=== PATIENT | female | born 1960 | race American Indian/Alaskan Native ===

== ENCOUNTER 2018-02-12 13:21 | Outpatient (CLI) | payer MEDICARE ==
--- NOTE | 2018-02-12 16:12 | Mammography Report ---
BILATERAL DIGITAL SCREENING MAMMOGRAM with CAD: 02/12/18 13:21:00 CLINICAL: Routine screening. COMPARISON:06/09/16 FINDINGS: The breasts are mostly fatty with a few bilateral residual fibroglandular densities. A right upper outer focal asymmetry requires additional imaging.No architectural distortion or suspicious calcifications.The left breast is negative. IMPRESSION: Right asymmetry requiring further workup. BI-RADS CATEGORY: 0 -- Additional Imaging Evaluation Required RECOMMENDATION: Recall for right mediolateral , spot magnification CC and MLO views and right ultrasound. ACR BI-RADS MAMMOGRAPHIC CODES: 0 = Needs additional imaging evaluation; 1 = Negative; 2 = Benign; 3 = Probably benign; 4 = Suspicious; 5 = Malignant; 6 = Known biopsy-proven malignancy COMMENT: 1. Dense breast tissue, i.e., adenosis, fibrocystic changes, etc., may obscure an underlying neoplasm. 2. Approximately 10% of cancers are not detected with mammography. 3. A negative mammography report should not delay biopsy if a clinically suspicious mass is present. COMMENT: Patient follow-up letters are generated via our Live Mobile application.
== END 2018-02-12 13:22 | disposition home or self-care (01) ==
LOC: SPVWC 13:21
PROVIDERS: ATTEND General Practice
DX: Z12.31 Encounter for screening mammogram for malignant neoplasm of breast (principal); I10 Essential (primary) hypertension; Z88.0 Allergy status to penicillin; Z90.710 Acquired absence of both cervix and uterus
CPT/HCPCS: 77067

== ENCOUNTER 2019-02-14 07:52 | Outpatient (CLI) | payer MEDICARE ==
--- NOTE | 2019-02-14 12:27 | Mammography Report ---
DIGITAL DIAGNOSTIC MAMMOGRAM 02/14/2019 INDICATION: Bilateral clear nipple discharge for one month TECHNIQUE: Digital bilateral mammographic imaging was performed. Magnification views were obtained. COMPARISON: 02/12/2018, 06/09/2016, 06/07/2015 FINDINGS: Breast Density: There are scattered areas of fibroglandular density. There is no evidence of dominant mass, suspicious calcifications or architectural distortion in the l eft breast. In the right breast in an area of concern on the prior study in 2018, a vague area of inc reased density is seen with a suggestion of mild architectural distortion. This is persistent on spot compression impression magnification views. IMPRESSION: 1. In the right breast in an area of concern on last mammogram for which additional evaluation was re commended recommended, there continues to be vague increased density compared to prior studies and mi ld architectural distortion. Ultrasound is recommended to further evaluate this area. This was planne d today but the patient left prior to completion. 2. No source of nipple discharge is seen on the left. 3. Clinical correlation to the history of nipple discharge is suggested. Serous nipple discharge can be associated with malignancy. If this is considered a valid history, MR may be useful after completi on of the right breast ultrasound. BI-RADS 0, needs additional imaging evaluation A "normal" or negative report should not discourage follow up or biopsy of a clinically significant f inding. A written summary of these findings will be mailed to the patient. The patient will be entered into a mammography reporting system which will generate a reminder letter for the patient's next appointmen t at the appropriate interval. According to the [employer], yearly mammograms are recommended starting at age 40 and continuing as long as a woman is in good health. Breast MRI is recommended for women with an kev roximately 20-25% or greater lifetime risk of breast cancer, including women with a strong family his tory of breast or ovarian cancer and women who have been treated for Hodgkin's disease. Signer Name: Jona Wilcox MD Signed: 02/14/2019 12:22 PM Workstation Name: [id number]
== END 2019-02-14 07:53 | disposition home or self-care (01) ==
LOC: SPVWC 07:52
PROVIDERS: ATTEND Hospitalist
DX: N63.10 Unspecified lump in the right breast, unspecified quadrant (principal); I10 Essential (primary) hypertension; Z90.710 Acquired absence of both cervix and uterus
CPT/HCPCS: 77066

== ENCOUNTER 2019-02-28 10:30 | Outpatient (CLI) | payer MEDICARE ==
--- NOTE | 2019-02-28 13:41 | Ultrasound Report ---
RIGHT BREAST ULTRASOUND HISTORY: Asymmetry and architectural distortion. COMPARISON: 02/14/2019 FINDINGS: Sonographic evaluation focused upon the area of interest in the outer right breast and axil la. Shadowing hypoechoic irregular mass is identified at 9:30 o'clock 4 cm from the nipple measuring 1.2 x 0.5 x 0.5 cm. It correlates with the mammographic asymmetry and architectural distortion. Ultra sound of the right axilla demonstrated an abnormal lymph node with minimal central fat measuring 1.4 x 0.6 cm. IMPRESSION: A highly suspicious 1.2 cm right breast mass at 9:30 o'clock 4 cm from the nipple and a suspicious ri ght axillary lymph node. Recommend ultrasound guided needle biopsy of the breast mass and ultrasound- guided needle biopsy of the right axillary lymph node. I spoke to the patient and discussed the findings and recommendation for needle biopsies. BIRADS 5: Highly suggestive of malignancy Signer Name: Gera King MD Signed: 02/28/2019 1:36 PM Workstation Name: [id number]
== END 2019-02-28 10:31 | disposition home or self-care (01) ==
LOC: SPVWC 10:30
PROVIDERS: ATTEND Hospitalist
DX: N63.11 Unspecified lump in the right breast, upper outer quadrant (principal); I10 Essential (primary) hypertension; Z90.710 Acquired absence of both cervix and uterus

== ENCOUNTER 2019-11-05 16:45 | Emergency (ER) | payer MEDICARE ==
--- NOTE | 2019-11-05 17:02 | Emergency Department Report ---
ED Altered Mental Status HPI - General Stated Complaint: AMS Time Seen by Provider: 11/05/19 16:59 Source: patient, family, EMS Mode of arrival: Stretcher Limitations: No Limitations - History of Present Illness Initial Comments: Mrs. Cummings is a 58 yo female with hx of breast cancer on chemotherapy who presents with altered mental status. Son over video phone call informed me that her speech is different. She seems confused. She admits to drinking wine today. She denies pain. She has coimpleted chemotherapy one month ago. She arrived via EMS. Son states she has hx of heart disease. Unknown time last known well. Neighbor was able to state that she arrived home 1 PM after visiting family. Patient does have history of atrial fibrillation according to her report. She takes Eliquis. She did not take Eliquis last night because it was too late. Family Mino gave further information. Patient was confused over the phone 11 AM. Patient was unable to remember how to get to her Aunt Nediogenes's home. The aunt met patient at the grocery store. She was confused and speech was "off". Aunt recommended that patient goes directly home to rest. MD Complaint: altered mental status, confusion -: Gradual, unknown Severity: mild Consistency of Symptoms: constant Context: other (heart disease, breast CA) Associated Symptoms: denies other symptoms - Related Data Home Medications Medication Instructions Recorded Confirmed Last Taken ALBUTEROL NEB's [Proventil 0.083% 1 neb IH Q6H PRN 09/02/14 09/02/14 09/01/14 21:00 NEBS] lisinopriL [Zestril TAB] 40 mg PO QDAY 09/02/14 09/02/14 09/02/14 09:00 Previous Rx's Medication Instructions Recorded Last Taken Type Albuterol Sulfate [Ventolin HFA] 2 puff IH Q4H PRN #1 hfa.aer.ad 09/02/14 Unknown Rx Ibuprofen [Motrin] 600 mg PO Q8H PRN #40 tablet 09/02/14 Unknown Rx Promethazine /Codeine 5 ml PO Q6H PRN #150 ml 09/02/14 Unknown Rx [Phenergan/Codeine 6.25-10 mg/5 ml] Sulfamethoxazole/Trimethoprim 1 each PO BID #20 tablet 09/02/14 Unknown Rx [Bactrim Ds] predniSONE [Deltasone] 50 mg PO QDAY #5 tab 09/02/14 Unknown Rx Allergies Allergy/AdvReac Type Severity Reaction Status Date / Time Penicillins Allergy Swelling Verified 09/02/14 13:40 ED Review of Systems ROS: Stated complaint: AMS Other details as noted in HPI Comment: All other systems reviewed and negative Constitutional: denies: fever, malaise Respiratory: denies: cough, shortness of breath Gastrointestinal: denies: abdominal pain, nausea, vomiting Neurological: confusion. denies: headache, weakness, numbness, paresthesias ED Past Medical Hx - Past Medical History Previous Medical History?: Yes Hx Hypertension: Yes Additional medical history: CHRONIC NECK AND BACK PAIN. Breast CA - Surgical History Additional Surgical History: PARTIAL HYSTERECTOMY. TONSILLECTOMY - Social History Smoking Status: Never Smoker Substance Use Type: Alcohol, Marijuana - Medications Home Medications: Home Medications Medication Instructions Recorded Confirmed Last Taken Type ALBUTEROL NEB's [Proventil 0.083% 1 neb IH Q6H PRN 09/02/14 09/02/14 09/01/14 21:00 History NEBS] Albuterol Sulfate [Ventolin HFA] 2 puff IH Q4H PRN #1 hfa.aer.ad 09/02/14 Unknown Rx Ibuprofen [Motrin] 600 mg PO Q8H PRN #40 tablet 09/02/14 Unknown Rx Promethazine /Codeine 5 ml PO Q6H PRN #150 ml 09/02/14 Unknown Rx [Phenergan/Codeine 6.25-10 mg/5 ml] Sulfamethoxazole/Trimethoprim 1 each PO BID #20 tablet 09/02/14 Unknown Rx [Bactrim Ds] lisinopriL [Zestril TAB] 40 mg PO QDAY 09/02/14 09/02/14 09/02/14 09:00 History predniSONE [Deltasone] 50 mg PO QDAY #5 tab 09/02/14 Unknown Rx ED Physical Exam - General Limitations: Other (Mild dysarthria mild aphasia) General appearance: alert, in no apparent distress, other (slurred speech) - Head Head exam: Present: atraumatic, normocephalic - Eye Eye exam: Present: normal appearance - ENT ENT exam: Present: mucous membranes moist - Neck Neck exam: Present: normal inspection, full ROM - Respiratory Respiratory exam: Present: normal lung sounds bilaterally. Absent: respiratory distress, wheezes, rales, rhonchi - Cardiovascular Cardiovascular Exam: Present: regular rate, normal rhythm, normal heart sounds. Absent: systolic murmur, diastolic murmur, rubs, gallop - GI/Abdominal GI/Abdominal exam: Present: soft, normal bowel sounds. Absent: distended, tenderness, guarding, rebound - Extremities Exam Extremities exam: Present: normal inspection - Neurological Exam Neurological exam: Present: alert, oriented X3 - Expanded Neurological Exam Expanded Patient oriented to: Present: person, place, time Speech: Present: expressive aphasia Cerebellar function: Finger to Nose: Normal Upper motor neuron: Alejandro Neglect: Normal Sensory exam: Upper Extremity Light Touch: Normal Motor strength exam: RUE: 5, LUE: 5, RLE: 5, LLE: 5 Best Eye Response (Angela): (4) open spontaneously Best Motor Response (Angela): (6) obeys commands Best Verbal Response (Angela): (5) oriented Angela Total: 15 - Psychiatric Psychiatric exam: Present: normal affect, normal mood - Skin Skin exam: Present: warm, dry, intact, normal color. Absent: rash - Assessment Assessment Interval: Baseline - Level of Consciousness 1a. Level of Consciousness: alert/keenly responsive - LOC Questions 1b. LOC Questions: answers both correctly - LOC Command 1c. LOC Commands: performs tasks correctly - Best Gaze 2. Best Gaze: normal - Visual 3. Visual: no visual loss - Facial Palsy 4. Facial Palsy: normal symmetrical movement - Motor Arm 5a. Motor Arm Left: no drift 5b. Motor Arm Right: no drift - Motor Leg 6a. Motor Leg Left: no drift 6b. Motor Leg Right: no drift - Limb Ataxia 7. Limb Ataxia: absent - Sensory 8. Sensory: normal - Best Language 9. Best Language: mild/moderate aphasia - Dysarthria 10. Dysarthria: mild/moderate dysarthria - Extinction and Inattention 11. Extinction/Inattention: no abnormality - Scoring Total Score: 2 Stroke Severity: Minor Stroke ED Course Vital Signs 11/05/19 11/05/19 11/05/19 17:00 17:04 17:11 Temperature 98.3 F Pulse Rate 130 H Respiratory 9 L 22 14 Rate Blood Pressure 153/86 Blood Pressure 153/86 [Left] O2 Sat by Pulse 98 98 98 Oximetry 11/05/19 11/05/19 11/05/19 18:54 19:14 19:40 Temperature Pulse Rate 86 91 H 89 Respiratory 20 13 Rate Blood Pressure 133/73 138/61 Blood Pressure 133/73 [Left] O2 Sat by Pulse 98 Oximetry 11/05/19 20:00 Temperature Pulse Rate 91 H Respiratory 23 Rate Blood Pressure 138/61 Blood Pressure [Left] O2 Sat by Pulse 97 Oximetry - Reevaluation(s) Reevaluation #1: 11/05/19 20:20 I spoke with tele-neurologist who contacted [place] interventionalist Dr. Hammer, Patient has LVO. I immediately spoke with Dr. Hammer through the [place] transfer center. I discussed case extensively with Dr. Ceja. At this time awaiting transfer of images to [facility] PACS - Lab Data Result diagrams: 11/05/19 17:06 11/05/19 17:06 Lab Results 11/05/19 11/05/19 11/05/19 Range/Units 17:06 17:06 17:06 WBC 6.1 (4.5-11.0) K/mm3 RBC 4.77 (3.65-5.03) M/mm3 Hgb 15.0 H (10.1-14.3) gm/dl Hct 42.3 (30.3-42.9) % MCV 89 (79-97) fl MCH 31 (28-32) pg MCHC 36 H (30-34) % RDW 14.1 (13.2-15.2) % Plt Count 186 (140-440) K/mm3 Lymph % (Auto) 26.4 (13.4-35.0) % Arthur % (Auto) 10.7 H (0.0-7.3) % Eos % (Auto) 2.7 (0.0-4.3) % Baso % (Auto) 0.6 (0.0-1.8) % Lymph # 1.6 (1.2-5.4) K/mm3 Arthur # 0.7 (0.0-0.8) K/mm3 Eos # 0.2 (0.0-0.4) K/mm3 Baso # 0.0 (0.0-0.1) K/mm3 Seg Neutrophils % 59.6 (40.0-70.0) % Seg Neutrophils # 3.6 (1.8-7.7) K/mm3 PT 14.2 (12.2-14.9) Sec. INR 1.09 (0.87-1.13) APTT 26.9 (24.2-36.6) Sec. Sodium 140 (137-145) mmol/L Potassium 4.2 (3.6-5.0) mmol/L Chloride 101.5 (98-107) mmol/L Carbon Dioxide 30 (22-30) mmol/L Anion Gap 13 mmol/L BUN 16 (7-17) mg/dL Creatinine 1.0 (0.7-1.2) mg/dL Estimated GFR > 60 ml/min BUN/Creatinine Ratio 16 % Glucose 88 (65-100) mg/dL POC Glucose (70-105) Calcium 9.5 (8.4-10.2) mg/dL Total Bilirubin 0.40 (0.1-1.2) mg/dL AST 21 (5-40) units/L ALT 30 (7-56) units/L Alkaline Phosphatase 54 (35-129) units/L Troponin T < 0.010 (0.00-0.029) ng/mL Total Protein 7.1 (6.3-8.2) g/dL Albumin 3.8 L (3.9-5) g/dL Albumin/Globulin Ratio 1.2 % Plasma/Serum Alcohol (0-0.07) % 11/05/19 11/05/19 Range/Units 17:06 17:47 WBC (4.5-11.0) K/mm3 RBC (3.65-5.03) M/mm3 Hgb (10.1-14.3) gm/dl Hct (30.3-42.9) % MCV (79-97) fl MCH (28-32) pg MCHC (30-34) % RDW (13.2-15.2) % Plt Count (140-440) K/mm3 Lymph % (Auto) (13.4-35.0) % Arthur % (Auto) (0.0-7.3) % Eos % (Auto) (0.0-4.3) % Baso % (Auto) (0.0-1.8) % Lymph # (1.2-5.4) K/mm3 Arthur # (0.0-0.8) K/mm3 Eos # (0.0-0.4) K/mm3 Baso # (0.0-0.1) K/mm3 Seg Neutrophils % (40.0-70.0) % Seg Neutrophils # (1.8-7.7) K/mm3 PT (12.2-14.9) Sec. INR (0.87-1.13) APTT (24.2-36.6) Sec. Sodium (137-145) mmol/L Potassium (3.6-5.0) mmol/L Chloride (98-107) mmol/L Carbon Dioxide (22-30) mmol/L Anion Gap mmol/L BUN (7-17) mg/dL Creatinine (0.7-1.2) mg/dL Estimated GFR ml/min BUN/Creatinine Ratio % Glucose (65-100) mg/dL POC Glucose 76 (70-105) Calcium (8.4-10.2) mg/dL Total Bilirubin (0.1-1.2) mg/dL AST (5-40) units/L ALT (7-56) units/L Alkaline Phosphatase (35-129) units/L Troponin T (0.00-0.029) ng/mL Total Protein (6.3-8.2) g/dL Albumin (3.9-5) g/dL Albumin/Globulin Ratio % Plasma/Serum Alcohol < 0.01 (0-0.07) % 11/05/19 17:29 EKG obtained 1722 Atrial fibrillation atrial flutter ventricular rate 125 bpm normal axis no ST elevation - Radiology Data Radiology results: report reviewed CT head there is focus of increased attenuation along the L MCA near the trifurcation concerning for thrombus given the patient's history, mild microvascular angiopathy without CT evidence of acute intracranial hemorrhage, opacification of visualized right maxillary sinus CT angiogram of the neck revealed mild atherosclerotic plaque involving the posterior proximal left ICA without significant stenosis CT head angiogram of the head revealed occlusion of the distal M1 segment of the left MCA near trifurcation - Medical Decision Making Acute CVA: tPA not indicated due to time of onset and use of Eliquis, NIHSS 2, Teleneurologist recommended CT angiogram head/neck Distal M1 MCA LVO Dr. Bianchy accepted patient in transfer for possible thrombectomy to [facility]. Critical Care Time: Yes Critical care time in (mins) excluding proc time.: 60 Critical care attestation.: If time is entered above; I have spent that time in minutes in the direct care of this critically ill patient, excluding procedure time. 60 minutes of critical care time excluding procedures were used in the care of the patient. I reviewed electronic record. I discussed treatment plan with the nursing team members at the bedside. I came immediately to the bedside. I kept the family members informed. Patient required multiple interventions and reassessments. ED Disposition Clinical Impression: Acute CVA (cerebrovascular accident), Cerebrovascular accident (CVA) involving large vessel Disposition: DC/TX-70 ANOTHER TYPE HLTHCARE Is pt being admited?: No Does the pt Need Aspirin: No Condition: Stable
[2019-11-05 17:19] LABS: Basophils % (Auto) 0.6 % (0.0-1.8); Eosinophils # (Auto) 0.2 K/mm3 (0.0-0.4); Eosinophils % (Auto) 2.7 % (0.0-4.3); Hematocrit 42.3 % (30.3-42.9); Lymphocytes # (Auto) 1.6 K/mm3 (1.2-5.4); Lymphocytes % (Auto) 26.4 % (13.4-35.0); Mean Corpuscular HGB Conc 36 % (30-34); Mean Corpuscular Volume 89 fl (79-97); Monocytes # (Auto) 0.7 K/mm3 (0.0-0.8); Monocytes % (Auto) 10.7 % (0.0-7.3); Platelet Count 186 K/mm3 (140-440); Red Blood Count 4.77 M/mm3 (3.65-5.03); Red Cell Distribution Width 14.1 % (13.2-15.2)
[2019-11-05 17:30] LABS: INR 1.09 (0.87-1.13)
[2019-11-05 17:31] LABS: Partial Thromboplastin Time 26.9 Sec. (24.2-36.6)
--- NOTE | 2019-11-05 17:42 | XRay Report ---
CHEST 1 VIEW INDICATION / CLINICAL INFORMATION: dysarthria. Chest pain. COMPARISON: None available. FINDINGS: SUPPORT DEVICES: None. HEART / MEDIASTINUM: No significant abnormality. LUNGS / PLEURA: No significant pulmonary or pleural abnormality. No pneumothorax. ADDITIONAL FINDINGS: No significant additional findings. IMPRESSION: 1. No acute findings. Signer Name: Mohsen Vidal MD Signed: 11/05/2019 5:38 PM Workstation Name: [id number]
[2019-11-05 17:52] LABS: Alanine Aminotransferase 30 units/L (7-56); Albumin 3.8 g/dL (3.9-5); BUN/Creatinine Ratio 16; Blood Urea Nitrogen 16 mg/dL (7-17); Calcium 9.5 mg/dL (8.4-10.2); Hemolysis Index 14
--- NOTE | 2019-11-05 17:57 | History and Physical Report ---
History of Present Illness Chief complaint: She started acting confused today and her speech was off History of present illness: 58 YO Female with Atrial Fib, Noncompliant with Therapeutic Anticoagulation, Obesity, HTN, BRCa S/P Chemotherapy presents to ED for evaluation. Patient is confused and is unable to provide detailed history at the time of my evaluation. Patient history taken from ED staff, EMS staff and patient son who is spoken to via video phone call. Patient son reports that patient was in her usual state of health upon awakening from sleep this morning around 0800 hrs. Patient was found to have confusion while talking to her son over the telephone at approximately 11 AM. EMS was notified and upon arrival the patient was found to be confused and in distress and subsequently transported to [facility] for further care and evaluation. Patient seen and evaluated in the emergency department. A code stroke was called. Tele-neurology was consulted. Patient underwent CT scan of the brain which revealed abnormalities in the left middle cerebral artery territory. Patient was initiated on CVA protocol and admitted to telemetry. Patient was also found to have metabolic acidosis. No reports of fever, chills, chest pain, palpitations, trauma, productive cough, recent ill contacts, known exposure to COVID-19. No prior admission for review. All medication listed at time of admission has been reconciled. Past History Past Medical History: atrial fib, cancer, other (See HPI) Past Surgical History: hysterectomy, tonsillectomy Social history: single. denies: smoking, alcohol abuse, prescription drug abuse Family history: diabetes, hypertension Medications and Allergies Allergies Allergy/AdvReac Type Severity Reaction Status Date / Time Penicillins Allergy Swelling Verified 09/02/14 13:40 Home Medications Medication Instructions Recorded Confirmed Last Taken Type ALBUTEROL NEB's [Proventil 0.083% 1 neb IH Q6H PRN 09/02/14 09/02/14 09/01/14 21:00 History NEBS] Albuterol Sulfate [Ventolin HFA] 2 puff IH Q4H PRN #1 hfa.aer.ad 09/02/14 Unknown Rx Ibuprofen [Motrin] 600 mg PO Q8H PRN #40 tablet 09/02/14 Unknown Rx Promethazine /Codeine 5 ml PO Q6H PRN #150 ml 09/02/14 Unknown Rx [Phenergan/Codeine 6.25-10 mg/5 ml] Sulfamethoxazole/Trimethoprim 1 each PO BID #20 tablet 09/02/14 Unknown Rx [Bactrim Ds] lisinopriL [Zestril TAB] 40 mg PO QDAY 09/02/14 09/02/14 09/02/14 09:00 History predniSONE [Deltasone] 50 mg PO QDAY #5 tab 09/02/14 Unknown Rx Review of Systems ROS unobtainable: due to mental status Exam - Constitutional Vitals: Temp Pulse Resp BP Pulse Ox 98.3 F 130 H 14 153/86 98 11/05/19 17:04 11/05/19 17:04 11/05/19 17:11 11/05/19 17:04 11/05/19 17:11 General appearance: Present: mild distress, obese - EENT Eyes: Present: PERRL ENT: hearing intact, clear oral mucosa - Neck Neck: Present: supple, normal ROM - Respiratory Respiratory effort: normal Respiratory: bilateral: CTA - Cardiovascular Heart Sounds: Present: S1 & S2. Absent: rub, click - Extremities Extremities: pulses symmetrical, No edema Peripheral Pulses: within normal limits - Abdominal General gastrointestinal: Present: soft, non-tender, non-distended, normal bowel sounds Female genitourinary: Present: normal - Integumentary Integumentary: Present: clear, warm, dry - Musculoskeletal Musculoskeletal: generalized weakness - Psychiatric Psychiatric: no appropriate mood/affect, no intact judgment & insight, no memory intact - Neurologic Neurologic: CNII-XII intact, no focal deficits, moves all extremities, no gait normal Results - Labs CBC & Chem 7: 11/05/19 17:06 11/05/19 17:06 Labs: Abnormal lab results 11/05/19 11/05/19 Range/Units 17:06 17:06 Hgb 15.0 H (10.1-14.3) gm/dl MCHC 36 H (30-34) % Harding % (Auto) 10.7 H (0.0-7.3) % Albumin 3.8 L (3.9-5) g/dL Assessment and Plan - Patient Problems (1) CVA (cerebral vascular accident) Current Visit: Yes Status: Acute Qualifiers: Precerebral and cerebral artery: middle cerebral artery Laterality of affected vessel: left Plan to address problem: CVA protocol: CT head, CT angios head and neck, tele-neurology consulted, carotid Doppler, echocardiogram, physical therapy, Occupational Therapy, speech therapy, antiplatelet therapy, lipid panel, statin therapy, neurochecks. Will resume antiplatelet therapy for now and discontinue in a.m. and resume therapeutic anticoagulation with Eliquis and a.m. As per tele-neurology recommendations. (2) Atrial fibrillation Current Visit: Yes Status: Acute Qualifiers: Atrial fibrillation type: other persistent Qualified Code(s): I48.19 - Other persistent atrial fibrillation Plan to address problem: Rate control, continue therapeutic anticoagulation, supportive care. (3) Acidosis Current Visit: Yes Status: Acute Plan to address problem: BMP, repeat BMP in a.m., IV fluid resuscitation therapy as clinically indicated. (4) Breast cancer Current Visit: Yes Status: Acute Plan to address problem: Status post chemotherapy. Outpatient oncology follow-up. (5) DVT prophylaxis Current Visit: Yes Status: Acute Plan to address problem: SCD to bilateral lower extremities while in bed, continue therapeutic anticoagulation.
[2019-11-05] MEDS ORDERED: ACETAMINOPHEN 325 MG TAB PO PRN (18:04)
[2019-11-05] MEDS ORDERED: ONDANSETRON 4 MG/2 ML INJ IV PRN (18:04)
[2019-11-05] MEDS ORDERED: MAGNESIUM HYDROXIDE (MOM) ORAL LIQD UDC PO PRN (18:04)
[2019-11-05] MEDS ORDERED: PROMETHAZINE 25 MG RECT SUPP PR PRN (18:04)
[2019-11-05] MEDS ORDERED: METOCLOPRAMIDE 10 MG TAB PO PRN (18:04)
[2019-11-05] MEDS ORDERED: ALBUTEROL 8.5 GM INHALATION IH PRN (18:06)
[2019-11-05] MEDS ORDERED: ALBUTEROL 2.5 MG/3 ML NEBU IH PRN (18:06)
[2019-11-05] MEDS ORDERED: PROMETHAZINE/CODEINE 6.25-10 MG ORAL LIQD 5 ML PO PRN (18:06)
[2019-11-05] MEDS ORDERED: IBUPROFEN 600 MG TAB PO PRN (18:06)
--- NOTE | 2019-11-05 18:16 | Cat Scan Report ---
CT head/brain wo con INDICATION / CLINICAL INFORMATION: 58 years Female; MAIN: Stroke symptoms DIFF SPEAKING PT UNABLE TO REMOVE ALL OF PIERCINGS. TECHNIQUE: Routine CT head without contrast. All CT scans at this location are performed using CT dos e reduction for ALARA by means of automated exposure control. COMPARISON: None. FINDINGS: BRAIN / INTRACRANIAL CONTENTS: There is a focus of increased attenuation projected along the left MCA near the trifurcation which may reflect atherosclerotic calcification or possibly thrombus.. There i s no clear CT evidence of significant edema within the left MCA distribution on the current CT though correlation would be needed given the patient's history There is otherwise mild cerebral white matter disease most consistent with mild scattered microvascul ar angiopathy. The ventricular system is within normal limits in size and configuration. There is no clear CT evidence of acute intracranial hemorrhage or significant mass effect. ORBITS: No significant abnormality of visualized orbits. SINUSES / MASTOIDS: There is prominent opacification and mucosal thickening within the visualized rig ht maxillary sinus. Minimal thickening is seen along the posterior left sphenoid sinus. CRANIOCERVICAL JUNCTION: No significant abnormality. ADDITIONAL FINDINGS: None. IMPRESSION: 1. There is a focus of increased attenuation along the left MCA near the trifurcation concerning for thrombus given the patient's a history; correlation would be needed. 2. There is mild microvascular angiopathy without CT evidence of acute intracranial hemorrhage. There is notable opacification of the visualized right maxillary sinus. Signer Name: Allan Fraire MD Signed: 11/05/2019 6:11 PM Workstation Name: [id number]
--- NOTE | 2019-11-05 18:23 | Consultation ---
History of Present Illness Consult date: 11/05/19 Medications and Allergies Allergies Allergy/AdvReac Type Severity Reaction Status Date / Time Penicillins Allergy Swelling Verified 09/02/14 13:40 Home Medications Medication Instructions Recorded Confirmed Last Taken Type ALBUTEROL NEB's [Proventil 0.083% 1 neb IH Q6H PRN 09/02/14 09/02/14 09/01/14 21:00 History NEBS] Albuterol Sulfate [Ventolin HFA] 2 puff IH Q4H PRN #1 hfa.aer.ad 09/02/14 Unknown Rx Ibuprofen [Motrin] 600 mg PO Q8H PRN #40 tablet 09/02/14 Unknown Rx Promethazine /Codeine 5 ml PO Q6H PRN #150 ml 09/02/14 Unknown Rx [Phenergan/Codeine 6.25-10 mg/5 ml] Sulfamethoxazole/Trimethoprim 1 each PO BID #20 tablet 09/02/14 Unknown Rx [Bactrim Ds] lisinopriL [Zestril TAB] 40 mg PO QDAY 09/02/14 09/02/14 09/02/14 09:00 History predniSONE [Deltasone] 50 mg PO QDAY #5 tab 09/02/14 Unknown Rx Active Meds: Active Medications Acetaminophen (Tylenol) 650 mg PO Q4H PRN PRN Reason: Pain, Mild (1-3) Albuterol (Proventil) 2.5 mg IH Q6H PRN PRN Reason: Wheezing Albuterol (Proair) 2 puff IH Q4H PRN PRN Reason: Shortness Of Breath Aspirin (Aspirin) 325 mg PO QDAY TERRANCE Atorvastatin Calcium (Lipitor) 40 mg PO QHS TERRANCE Bisacodyl (Dulcolax) 10 mg MA QDAY PRN PRN Reason: Constipation Ibuprofen (Ibuprofen) 600 mg PO Q8H PRN PRN Reason: PAIN Lisinopril (Zestril) 40 mg PO QDAY [facility] Magnesium Hydroxide (Milk Of Magnesia) 30 ml PO Q4H PRN PRN Reason: Constipation Metoclopramide HCl (Reglan) 10 mg PO Q6H PRN PRN Reason: Nausea And Vomiting Ondansetron HCl (Zofran) 4 mg IV Q8H PRN PRN Reason: Nausea And Vomiting Prednisone (Deltasone) 50 mg PO QDAY TERRANCE Promethazine HCl (Phenergan) 25 mg MA Q6H PRN PRN Reason: Nausea And Vomiting Promethazine HCl/Codeine (Phenergan/Codeine 6.25-10 Mg/5ml) 5 ml PO Q6H PRN PRN Reason: cough Sodium Chloride (Sodium Chloride Flush Syringe 10 Ml) 10 ml IV PRN PRN PRN Reason: LINE FLUSH Physical Examination - Vital Signs Vital Signs: Vital Signs Temp Pulse Resp BP Pulse Ox 98.3 F 130 H 22 153/86 98 11/05/19 17:04 11/05/19 17:04 11/05/19 17:04 11/05/19 17:04 11/05/19 17:04 Results - Laboratory Findings CBC and BMP: 11/05/19 17:06 11/05/19 17:06 Abnormal Lab Findings: Abnormal Labs 11/05/19 11/05/19 17:06 17:06 Hgb 15.0 H MCHC 36 H [place] % (Auto) 10.7 H Albumin 3.8 L Assessment and Plan [facility] Date of Service 11/05/2019 Impression: 1- word finding difficulty concerning for Acute Ischemic Stroke 2- Atrial Fibrillation on anticoagulation Recommendations: Patient is not a tPA candidate Head CT did not show any acute hemorrhage. reviewed report (if available) and images Reason: _ is on Eliquis, also last know well is not clear. Due to speech impairment Will do STAT head and neck CTA to investigate for Large Vessel Occlusion. dysphagia screen (General approach to antithrombotic therapy for acute ischemic stroke (suspected or proven) in patient on long-term anticoagulation (appropriately) prior to stroke onset) Will hold anticoagulation and will start aspirin for now ( if no other contraindication) till follow up head imaging result is available within 24 hours, if follow up head imaging (preferably a brain MRI) shows no acute stroke then stop aspirin and resume Anticoagulation, if imaging shows small ischemic stroke without any hemorrhage then can stop aspirin and resume anticoagulation in 24-48 hours after stroke symptom onset if patient is stable, if imaging shows large stroke (but no hemorrhagic conversion) then will continue aspirin and keep holding anticoagulation (Warfarin for at least 10 days and NOAC agents for 14 days (from onset of stroke)). prior to initiating anticoagulation, a noncontrast head CT should be obtained to evaluate for hemorrhagic conversion. once anticoagulation started then aspirin should be stopped. head of bed flat IV fluids NS Stroke work up with: noncontrast brain MRI, lipid panel, HbA1c (Goal LDL<70, HbA1c<7) inpatient neurology consultation if available Inpatient stroke evaluation as per Neurology/ Internal Medicine Discussed with ED physician/medical staff Please contact [facility] Navigator to reach me if further qu estions/concerns arise. Reason for Neurology Consult: - History of Present Illness: - Patient is a(n) 58 years old female, history of Atrial Fibrillation is on Eliquis, breast cancer, At 13:00 was noticed that she has not been acting right, has been having some word finding difficulty as well. Diagnostic Testing: - Head CT in my review does not show any intraparenchymal hemorrhage. Examination: # NIHSS - NIH STROKE SCALE - 11 items: 1A: Level of consciousness: 0 - Alert; keenly responsive. 1B: Ask month and age: 1 - 1 question right; Or Dysarthric/intubated/trauma/language barrier. 1C: 'Blink eyes' & 'squeeze hands': 0 - Performs both tasks 2: Horizontal extraocular movements: 0 - Normal. 3: Visual armenta: 0 - No visual loss. 4: Facial palsy: 0 - Normal symmetry. 5A: Left arm motor drift: 0 - No drift for 10 seconds, or Amputation/joint fusion. 5B: Right arm motor drift: 0 - No drift for 10 seconds, or Amputation/joint fusion. 6A: Left leg motor drift: 0 - No drift for 5 seconds, or Amputation/joint fusion. 6B: Right leg motor drift: 0 - No drift for 5 seconds, or Amputation/joint fusion. 7: Limb Ataxia: 0 - No ataxia, or does not understand, or Paralyzed, or Amputation/joint fusion. 8: Sensation: 0 - Normal; no sensory loss. 9: Language/aphasia: 2 - Severe aphasia: fragmentary expression, inference needed, cannot identify materials. 10: Dysarthria: 0 - Normal, or Intubated/unable to test 11: Extinction/inattention: 0 - No abnormality == Score: 3. Medical Decision Making: - Extensive number of diagnosis or management options are considered above. - Extensive amount of complex data reviewed. - High risk of complication and/or morbidity or mortality are associated with differential diagnostic considerations above. - There may be uncertain outcome and increased probability of prolonged functional impairment or high probability of severe prolonged functional impairm ent associated with some of these differential diagnoses. Medical Data Reviewed: 1.Data reviewed include clinical labs, radiology, Medical Tests; 2.Tests results discussed w/performing or interpreting physician; 3.Obtaining/reviewing old medical records; 4.Obtaining case history from another source; 5.Independent review of image, tracing or specimen. When possible Patient/family were informed the Neurology Consult would happen via TeleHealth consult by way of interactive audio and video telecommunications and consented to receiving care in this manner.
--- NOTE | 2019-11-05 19:46 | Cat Scan Report ---
CTA neck with and without contrast CLINICAL HISTORY: Cerebrovascular accident. Technique: Multiple contiguous postcontrast axial CT images of the neck were obtained at 0.63 mm inte rvals. 3 plane MIP reconstructions were produced. Precontrast localizing images were also performed. All CT scans at this location are performed using the CT dose reduction for ALARA by means of automat ed exposure control. FINDINGS: The motion and beam hardening degrade the image quality at. However, there is mild atherosc lerotic plaque posteriorly involving the proximal left ICA without significant stenosis by NASCET cri teria. The proximal right common carotid artery is obscured by the degree of beam hardening artifact. There is developmental tortuosity of the mid right cervical ICA. However, there is no significant stenosis involving the visualized right carotid arteries. The vertebral arteries appear to demonstrate appropriate caliber without significant focal narrowing. There is developmental common origin of the brachiocephalic and left common carotid arteries. There is no significant stenosis involving the arch vessels. There is a small 7 mm cystic appearing lesion within the left lobe of thyroid gland at. There are sca ttered cervical lymph nodes measuring less than 1 cm diameter which are likely reactive. IMPRESSION: There is mild atherosclerotic plaque involving the posterior proximal left ICA without significant st enosis by NASCET criteria. There is no significant narrowing involving the vertebral or right carotid arteries. Signer Name: Allan Fraire MD Signed: 11/05/2019 7:42 PM Workstation Name: [id number]
--- NOTE | 2019-11-05 19:56 | Cat Scan Report ---
CTA head with and without IV contrast. CLINICAL HISTORY: Cerebrovascular accident. Technique: Multiple contiguous postcontrast CT images of the head were obtained at 0.63 mm intervals. 3 plane MIP reconstructions were obtained. Precontrast localizing images were also performed. CT scan s at this location are performed using the CT dose reduction for [employer] by means of automated exposure control. FINDINGS: There is occlusion of the distal M1 segment of the left MCA near the trifurcation. There do es appear to be some collateral flow more distally within the insular branches at. There is mild athe rosclerotic calcification within the distal left internal carotid artery without ossific and focal st enosis. There is no significant focal narrowing involving the vertebral basilar system. The posterior cerebra l arteries demonstrate appropriate caliber. 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 There is relative small caliber of the distal right ICA. However, there is no significant focal narrowing involving this vessel or t he right MCA branches. There is no clear CTA evidence of intracranial aneurysm. There is developmental hypoplasia of the lef t transverse and sigmoid sinuses. There is notable opacification of the visualized right maxillary sinus. There is scattered mucosal th ickening within the ethmoid air cells and left sphenoid sinus. IMPRESSION: There is occlusion of the left MCA near the trifurcation as a detailed above. The findings were discussed with neurology at the time of dictation. Signer Name: Allan Fraire MD Signed: 11/05/2019 7:51 PM Workstation Name: [id number]
[2019-11-05 20:10] LABS: Bilirubin,Urine NEG (Negative); Blood,Urine NEG (Negative); Color,Urine Yellow (Yellow); Mucus,Urine FEW /HPF; Protein,Urine <15 mg/dL mg/dL (Negative); Urobilinogen,Urine < 2.0 mg/dL (<2.0)
[2019-11-05 20:21] LABS: Amphetamine Screen,Urine PRESUMPTIVE NEGATIVE; Benzodiazepines Screen,Urine PRESUMPTIVE NEGATIVE; Cocaine Screen,Urine PRESUMPTIVE NEGATIVE; Methadone Screen,Urine PRESUMPTIVE NEGATIVE; Opiate Screen,Urine PRESUMPTIVE NEGATIVE
[2019-11-05 20:34] LABS: Cannabinoid Screen,Urine PRESUMPTIVE POSITIVE
[2019-11-05] MEDS ORDERED: SODIUM CHLORIDE 0.9% 1000 ML 1,000 ML ONE (22:46)
[2019-11-05] MEDS ORDERED: SODIUM CHLORIDE 0.9% 1000 ML 1,000 ML IV ONE (23:00)
[2019-11-05 23:13] VITALS: BP 160/78
[2019-11-06] MEDS ORDERED: LISINOPRIL 40 MG TAB PO SCH (10:00)
[2019-11-06] MEDS ORDERED: predniSONE 50 MG TAB PO SCH (10:00)
[2019-11-06] MEDS ORDERED: ASPIRIN 325 MG TAB PO SCH (10:00)
[2019-11-06] MEDS ORDERED: APIXABAN 5 MG TAB PO SCH (12:00)
== END 2019-11-05 23:00 | disposition other institution (70) ==
LOC: ED 16:45 → UNDOADMOB 18:04 → 4A 18:04 → ED 23:00
DX: I63.89 Other cerebral infarction (principal); I10 Essential (primary) hypertension; F12.10 Cannabis abuse, uncomplicated; G89.29 Other chronic pain; Z90.710 Acquired absence of both cervix and uterus; Z90.79 Acquired absence of other genital organ(s); Z88.0 Allergy status to penicillin
CPT/HCPCS: 36415; 70450; 70496; 70498; 71045; 80053; 80307; 81001; 82962; 84484; 85025; 85379; 85610; 85730; 93005; 99285; J7030; Q9967; 80320; G0480